=== PATIENT | female | born 1950 | race Caucasian/White ===

== ENCOUNTER → 2016-11-10 | Outpatient (CLI) | payer MEDICARE ==
[~2016-11-10] MED LIST: ALENDRONATE SOD70 MG PO; ALLEGRA60 MG PO; AZATHIOPRINE50 MG PO; CIPRO 500MG TA500 MG PO; CITALOPRAM40 M1 PO; CLINDAMYCIN HC300 MG PO; DOXYCYCLINE100 M6 PO; FLONASE 50 MCG16 GM; FOLBIC RF1 TAB PO; IRON TABLETS325 MG PO; LISINOPRIL10 MG PO; MEDROL 4MG TABLE4 MG PO; MUCINEX ER600 MG PO; PATANASE0.6% NS; URSODIOL300 MG PO; VIBRAMYCIN 100100 MG PO; VITAMIN E 400400 IU PO; VOLTAREN100 GM TP; VOLTAREN50 MG TP
[2016-11-10 09:37] LABS: HEMOGLOBIN 14.2 g/dL (12.2-16.2); LYMPH # 1.1 K/mm3 (0.7-4.5); LYMPH % 18.5 % (10-50.0)
[2016-11-10 10:50] LABS: BUN 13 mg/dL (7-18)
[2016-11-10 10:53] LABS: GFR (ESTIMATED) 62 ML/MIN (59-)
== END ==
LOC: LAB 08:58
PROVIDERS: Internal Medicine Gastroenterology
DX: K83.0 Cholangitis (principal)

== ENCOUNTER → 2017-03-31 | Outpatient (CLI) | payer MEDICARE ==
--- NOTE | 2017-03-31 14:21 | RADIOLOGY REPORT PS360 ---
EXAM: LUMBAR SPINE 5 VIEWS HISTORY: Back pain INFLAMMATION OF RT SACROILIAC JOINT,LUMBAR ARTHROPATHY ORDERING PHYSICIAN: Reid Caicedo MD PATIENT AGE: 67 years COMPARISON: None FINDINGS: There is mild thoracolumbar curvature convex right and mild lower lumbar curvature convex left. Chronic anterior wedge compression changes are present at L1 with loss of height anteriorly of approximately 30%. This was present on previous lateral chest radiograph of 07/20/2014. There is minimal anterolisthesis of L4 on L5 of 3 mm. No acute fracture or dislocation evident. Mild facet arthritic changes at L5-S1 IMPRESSION: 1. Chronic wedge compression changes of L1. 2. Mild facet arthritic change. 3. Otherwise negative no acute finding
--- NOTE | 2017-03-31 14:24 | RADIOLOGY REPORT PS360 ---
HIP RT 2-3V W/PELVIS IF PERFOR HISTORY: INFLAMMATION OF RT SACROILIAC JOINT,LUMBAR ARTHROPATHY ORDERING PHYSICIAN: Reid Caicedo MD PATIENT AGE: 67 years COMPARISON: None FINDINGS: No fracture or dislocation is evident. There is very slight decrease in the hip joint space superiorly indicating minimal osteoarthritic change. No destructive process. IMPRESSION: Minimal osteoarthritic change of the right hip
--- NOTE | 2017-03-31 14:26 | RADIOLOGY REPORT PS360 ---
HIP LT 2-3V W/PELVIS IF PERFOR HISTORY: Left hip pain INFLAMMATION OF SACROILIAC JOINT,LUMBAR ARTHROPATHY ORDERING PHYSICIAN: Reid Caicedo MD PATIENT AGE: 67 years COMPARISON: None FINDINGS: No fracture or dislocation is evident. Minimal osteoarthritic change involving the left hip. No lytic or blastic change. There is a 10 mm calcification overlying the left ilium laterally. This could be either in the bone or within the soft tissues. IMPRESSION: 1. Minimal osteoarthritis of the left hip. 2. Nonspecific sclerotic focus overlies the lateral aspect of the ileum on the left
== END ==
LOC: RAD 13:00
DX: M46.1 Sacroiliitis, not elsewhere classified (principal); M46.96 Unspecified inflammatory spondylopathy, lumbar region

== ENCOUNTER → 2017-06-11 | Outpatient (CLI) | payer MEDICARE ==
--- NOTE | 2017-06-11 10:23 | RADIOLOGY REPORT PS360 ---
KNEE-3 VIEWS-RT HISTORY: Knee pain, osteoarthritis BILAT OA ORDERING PHYSICIAN: Reid Caicedo MD PATIENT AGE: 67 years COMPARISON: 11/06/2014 FINDINGS: No fracture or dislocation. No lytic or blastic change. Normal mineralization. No significant arthritic changes evident. No other significant findings IMPRESSION: Negative right Knee
--- NOTE | 2017-06-11 10:24 | RADIOLOGY REPORT PS360 ---
KNEE-3 VIEWS-LT HISTORY: Knee pain BILAT OA ORDERING PHYSICIAN: Reid Caicedo MD PATIENT AGE: 67 years COMPARISON: 11/06/2014 FINDINGS: No fracture or dislocation. No lytic or blastic change. Normal mineralization. No significant arthritic changes evident. No other significant findings IMPRESSION: Negative left Knee
== END ==
LOC: RAD 09:26
DX: M17.0 Bilateral primary osteoarthritis of knee (principal)